=== PATIENT | male | born 1955 | race Caucasian/White ===

== ENCOUNTER 2023-10-14 23:30 | Observation (INO) | payer BC, SELFPAY ==
[2023-10-14] VITALS (9 sets, daily range): BP systolic 121–201; BP diastolic 75–110; BMI 33.7
[2023-10-14 18:32] LABS: % Basophils 0.2 % (0-2); % Eosinophils 0.8 % (0-6); % Immature Granulocytes 0.3 % (0-0.5); % Lymphocytes 22.3 % (20.5-51.1); % Monocytes 9.1 % (1.7-9.3); % Neutrophils 67.3 % (42.2-75.2); Absolute Eosinophils 0.1 10^3/uL (0-0.7); Absolute Lymphocytes 2.4 10^3/uL (1.2-3.4); Absolute Neutrophils 7.2 10^3/uL (1.4-6.5); Hematocrit 41.5 % (39.0-52.0); Hemoglobin 14.8 g/dL (13.0-18.0); Mean Corp Hgb Conc. 35.7 g/dL (33.0-37.0); Mean Corpuscular Hgb 30.6 pg (27.0-31.0); Mean Corpuscular Volume 85.9 fL (80.0-94.0); Mean Platelet Volume 9.1 fL (7.4-10.4); Nucleated Red Blood Cells % 0 % (-); Platelet Count 357 10^3/uL (130-400); Red Blood Cell Count 4.83 10^6/uL (4.70-6.10); Red Cell Dist. Width 12.7 % (11.5-14.5); White Blood Cell Count 10.7 10^3/uL (4.8-10.8)
[2023-10-14 18:48] LABS: ALT (SGPT) 31 U/L (0-50); AST (SGOT) 33 U/L (17-59); Albumin 4.9 g/dl (3.5-5.0); Alkaline Phosphatase 65 U/L (38-126); Blood Urea Nitrogen 19 mg/dl (9-20); Calcium 9.7 mg/dl (8.4-10.2); Carbon Dioxide 22 mmol/L (22-30); Chloride 102 mmol/L (98-107); Estimated Creatinine Clearance 91 ml/min; Glucose 107 mg/dl (70-99); Potassium 4.2 mmol/L (3.5-5.1); Sodium 137 mmol/L (135-145); Total Bilirubin 0.5 mg/dl (0.2-1.3); eGFR > 60.00
[2023-10-14] MEDS: ASPIRIN 325 MG PO (23:06)
[2023-10-14] MEDS: PLAVIX 75 MG PO (23:06)
--- NOTE | 2023-10-14 23:32 | HPS.HSE ---
Family Physician
-
Family Physician: * NONE
Chief Complaint
-
facial droop, slurred speech, difficuly swallowing
History of Present Illness
68-year-old male with past medical history of gout, hypertension, presenting with right facial droop, drooling, slight slurring of words, and swallowing difficulty over the past 5 days. He is also noticed a dull discomfort over the right presybeterian.
He also complains of worsening blurry vision particularly in his left eye. Both of his eyelids are also more droopy over this time period. He has chronic numbness and tingling of the third fourth and fifth fingers of his left hand but this has
been present for several years. He denies any focal weakness. He has been off balance somewhat over the past week.
He has a history of high blood pressure however when his primary care physician retired he no longer obtain refills of the medication.
He is a former smoker. He smokes cigars occasionally. He denies alcohol use. He denies any other drugs.
His mother had Rodríguez's palsy.
Medical History
Past Medical History
Past Medical History: Reports Other (gout, hypertension)
Past Surgical History: Reports None
Social History
Tobacco: Former Smoker
Alcohol: None
Drug: None
Family History
Family History: Not pertinent
Allergies / Home Medications
Allergies reflects when Allergies were last updated in [facility].
Home Medications with original date entered in [facility]
Allergy/Medication List:
Allergies
Allergy/AdvReac Type Severity Reaction Status Date / Time
No Known Allergies Allergy Unverified 04/30/21 11:34
Home Medications
No Meds [No Current Medications] 10/14/23
Review of Systems
-
History Source: Patient
A 12 point ROS was completed and negative except as noted: Yes
Constitutional: Reports No Symptoms
EENT: Reports No Symptoms
Respiratory: Reports No Symptoms
Cardiac: Reports No Symptoms
Abdomen/GI: Reports No Symptoms
: Reports No Symptoms
Musculoskeletal: Reports No Symptoms
Skin: Reports No Symptoms
Neurological: Reports No Symptoms
Endocrine: Reports No Symptoms
Hematologic/Lymphatic: Reports No Symptoms
Psych: Reports No Symptoms
Physical Exam
Vital Signs
Vital Signs
Temp Pulse Resp BP Pulse Ox
99.4 F 69 18 151/92 98
10/14/23 18:04 10/14/23 23:10 10/14/23 18:04 10/14/23 23:10 10/14/23 23:10
Physical Exam
General: Well Developed, Well Nourished and No Apparent Distress
HEENT: NormoCephalic, Moist mucous membranes and Atraumatic
Respiratory: Clear
Cardiac: S1/S2 and Regular Rhythm; No Murmur or Rub
GI: Soft, Non Tender, Non Distended and Normal Bowel Sounds; No Organomegaly
Rectal: Deferred by Provider
Musculoskeletal: No Clubbing, No Cyanosis and No Edema
Skin: No Rash
Neuro: Nonfocal/grossly intact, Slurred Speech and Facial Droop
Laboratory Results
-
10/14/23 18:23
10/14/23 18:23
Laboratory Results
Total Bilirubin 0.5 mg/dl (0.2-1.3) 10/14/23 18:23
AST 33 U/L (17-59) 10/14/23 18:23
ALT 31 U/L (0-50) 10/14/23 18:23
Alkaline Phosphatase 65 U/L (38-126) 10/14/23 18:23
Data Reviewed
-
Lab Data: Labs Reviewed by me
Old Records: Reviewed
Impression/Plan
-
IMPRESSION:
PLAN:
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
-On the whole history is suggestive of subacute CVA except for bilateral ptosis
-Aspirin and Plavix given
-CT head shows no acute abnormality
-Check MRI brain
-Check A1c and lipid panel
-Check speech and swallow evaluation
-Neurology consulted
Essential hypertension
-No longer on treatment
Gout
Full code
DVT prophylaxis�SCDs
Regular diet
[2023-10-15] VITALS (9 sets, daily range): BP systolic 149–186; BP diastolic 79–92; BMI 33.1
--- NOTE | 2023-10-15 01:10 | PTCARENOTE ---
Pt arrived from ED via stretcher and ambulated to bed. Pt is AAOx3, VSS, and w/o complaints of pain. NIH-1 slight R sided facial droop. Pt is resting comfortably w/ call peterson within reach.
--- NOTE | 2023-10-15 01:10 | PTCARENOTE ---
Pt arrived from ED via stretcher and ambulated to bed. Pt is AAOx3, VSS, and w/o complaints of pain. NIH-2 R sided facial droop. Pt is resting comfortably w/ call peterson within reach.
--- NOTE | 2023-10-15 04:30 | ED.GENMED ---
History of Present Illness
General
Chief Complaint: Blood Pressure Problem
Source: patient and spouse
Exam Limitations: none
Time Seen by Provider: 10/14/23 19:04
Nursing documentation reviewed up to this point in time: agreed with
History of Present Illness
History of Present Illness:
68-year-old male with a past medical history of hypertension presents to the emergency room for evaluation of facial drooping, slurred speech, swallowing issues. Patient reports that symptoms started Thursday and they have been constant and he feels
slightly worsening. He went to urgent care today and was sent to the emergency room for evaluation concern for possible stroke. Patient says that he noticed symptoms gradually on Thursday does not recall the exact time of onset. He says that he
mainly notices that food tends to trip from the side of his mouth on the right and that he has slurred speech 'like I Saleem Fudd.' He also describes dysphagia�difficulty initiating swallow. He has not noticed any acute change in his vision. He
says he has had some balance issues but that this is not necessarily an acute change�his seems to think that his balance has been worse over the past few days she says. Patient denies any focal weakness or numbness in his extremities. He
denies any headache. He denies any head trauma. He denies having had similar symptoms in the past. He does notably have hypertension and reports that he has not taken any medication for the past year�his prescribing physician retired and he has
not yet seen a primary.
Past History
Past History
ED Past Medical History: Other (Gout)
ED Past Surgical History: None
Social History
Tobacco: Former smoker
Alcohol: None
Personal:
Living: with family
Employment: Employed ([employer])
Review of Systems
Review of Systems
All Other Systems: ROS reviewed and negative except as documented in HPI and ROS
Constitutional: Denies fever or chills
EENT: Denies sore throat
Respiratory: Denies cough or trouble breathing
Cardiac: Denies chest pain or palpitations
ABD/GI: Denies abdominal pain, nausea or vomiting
: Denies flank pain
Musculoskeletal: Denies neck pain or back pain
Neurological: Reports other (Facial droop, slurred speech, balance issues); Denies headache, weakness or numbness
Phy Exam
Physical Exam
Physical Exam:
General: Awake, alert, oriented x3; no acute distress
Head: Normocephalic, atraumatic
Eyes: Conjunctiva normal, EOMI, pupils equal round reactive to light bilateral
Throat: Airway intact, handling secretions
Neck: Trachea midline, supple without meningismus
Lungs: Clear to auscultation bilaterally, no wheezing, rales, rhonchi
Heart: Regular rate and rhythm, no murmurs, gallops, or rubs
Abd: Soft, non distended, nontender
Neuro: Patient has right-sided facial droop that does not spare the forehead; cranial nerves otherwise intact; he has no limb ataxia; motor and sensory function is intact and symmetric proximally and distally in the upper and lower extremities; he
does have mild dysarthria but no aphasia
Skin: no rash
Extremities: No edema in extremities, warm and well-perfused
Scores
NIH Stroke Score
Level of Consciousness: 0 - Alert
LOC Questions: 0-Answers both correctly
LOC Commands: 0-Performs both correctly
Best Horizontal Gaze: 0-Normal
Visual Schaefer: 0=Normal, no visual loss
Facial Palsy: 2=Partial paralysis
Motor - Right Arm: 0=No drift 10 seconds
Motor - Left Arm: 0=No drift 10 seconds
Motor - Right Le-No drift 5 seconds
Motor - Left Le-No drift 5 seconds
Limb Ataxia: 0-Absent
Sensation: 0-Normal
Best Language: 0-No aphasia
Dysarthria: 1-Mild slurring
Extinction and Inattention: 0-No abnormality
Total Score:: 3
Thrombolytic Contraindication
Inclusion and Exclusion criteria reviewed: Yes
Reasons for NON-Tx with Thrombolytics ABSOLUTE Exclusions: Greater than 4.5 hrs from onset of sxs
Heart Failure Risk
Heart Failure Risk Score: Not Applicable
Heart Score for Chest Pain Patients
STEMI patient?: Not applicable
Withdrawal Assessment of Alcohol
Withdrawal Assessment Completed?: Not applicable
Course
Orders/Labs/Results
Orders:
Orders
10/14/23 18:23
CMP [Comprehensive Metabolic Panel] Urgent
Complete Blood Count/With Diff Urgent
10/14/23 18:29
Lyme PCR, DNA [S] Urgent
10/14/23 21:52
CT Head W/o Iv Contrast Urgent
Comment:
Reason For Exam: right facial droop, swallowing dysfunction
10/14/23 21:54
Add On- LAB Urgent
Tests Added?: lyme pcr
10/14/23 22:54
Aspirin 325 mg PO NOW STA
Clopidogrel Bisulfate [Plavix] 75 mg PO NOW STA
10/14/23 22:55
NEUROLOGY CONSULT Urgent
Consulting Provider: Aguilar Kahn
Was physician already notified: Yes
Abnormal Lab Results
10/14/23
18:23
Absolute Neuts (auto) 7.2 H 10^3/uL
(1.4-6.5)
Absolute Monos (auto) 1.0 H 10^3/uL
(0.1-0.6)
Glucose 107 H mg/dl
(70-99)
10/14/23 18:23
10/14/23 18:23
Vital Signs
Initial and Last Documented VS:
Initial Vital Signs
Temp Pulse Resp BP Pulse Ox
37.4 C 89 18 201/110 96
10/14/23 18:04 10/14/23 18:04 10/14/23 18:04 10/14/23 18:04 10/14/23 18:04
Last Documented Vital Signs
Temp Pulse Resp BP Pulse Ox
36.7 C 64 18 153/80 98
10/15/23 03:53 10/15/23 03:53 10/15/23 03:53 10/15/23 03:53 10/15/23 03:53
MDM/Problems Addressed
Differential Diagnosis Includes:
Rodríguez's palsy, stroke, mass, hemorrhage
MDM/Problems Addressed:
68-year-old male presents to the emergency room for evaluation of right facial droop, dysarthria and dysphagia. He says onset was Thursday--stroke is of course of concern but he is well outside window for TNK, no stroke alert called. He is
hypertensive but otherwise normal vitals. Physical exam is as above. Objectively his main neurologic finding is right facial droop that does not spare the forehead and although he does have some dysarthria I suspect is related to the facial droop.
Certainly Rodríguez's palsy strong consideration but with his report of dysphagia as well as the question of increased balance issues I do think stroke needs to be ruled out. Will check CT head. Will check basic labs and EKG. Reassess after the above.
Labs reviewed: CBC and CMP show no clinically significant abnormalities. CT head shows no acute pathology. Case discussed with neurology agreed that stroke should be ruled out; although CT head negative sensitivity even for subacute stroke is
inadequate especially with concern for possible brainstem involvement. Recommended dosing with aspirin and Plavix will admit for MRI and clinical monitoring. Case discussed with hospitalist.
Chronic conditions affecting care:
Hypertension�high risk for stroke
Acute Exacerbation and/or Progression of Chronic Illness:
Acutely hypertensive�improved but not normalized without intervention; permissive hypertension in the setting of suspected subacute stroke
Acute Exacerbation and/or Progression of Chronic Illness: HTN
*Radiology
Radiology exam reviewed: radiology read reviewed
*Pulse Oximetry
Patient hypoxic: no
*Critical Care Note
Total Time (30-74mins, 75-104mins- exclusive of procedures): Not Applicable
Data Reviewed
Source: patient and spouse
Patient Management
Discussion with other providers: Hospitalist (Discussed with hospitalist) and Editing [employer] (Discussed with neurologist)
Escalation/DeEscalation of care consider admission/obs:
Admission indicated
ED Attending Note
-
Portions of this chart may have been created with voice recognition software.� Occasional wrong word or��sound alike� substitutions may have occurred due to the inherent limitations of voice recognition software.
Discharge Plan
Departure
Patient Disposition: Admit
Date of Disposition: 10/14/23
Time of Disposition: 23:02
Admit to doctor: Sergei
Presentation/result/management discussed w/ accepting MD/DO: Hospitalist
Discharge Problem:
Facial droop, Hypertension
Interventions
Interventions:
*Risk Screen - Suicide Last Done: 10/15/23 01:22
*General Assessment Last Done: 10/14/23 18:09
*Neglect/Abuse Screening Last Done: 10/14/23 18:09
ED- Fall Risk Assessment Last Done: 10/14/23 18:09
*ED COVID-19 Vaccine History Last Done: 10/15/23 01:22
*Nursing Disposition Last Done: 10/15/23 00:54
ED- Cardiac Assessment Last Done: 10/14/23 18:09
ED- Neurological Assessment Last Done: 10/14/23 23:00
ED- Pulmonary Assessment Last Done: 10/14/23 18:09
Discharge Date and Time
Discharge Date/Time: 10/15/23 00:55
[2023-10-15 07:13] LABS: Hematocrit 42.6 % (39.0-52.0); Hemoglobin 14.2 g/dL (13.0-18.0); Mean Corp Hgb Conc. 33.3 g/dL (33.0-37.0); Mean Corpuscular Hgb 30.2 pg (27.0-31.0); Mean Corpuscular Volume 90.6 fL (80.0-94.0); Mean Platelet Volume 9.3 fL (7.4-10.4); Platelet Count 310 10^3/uL (130-400); Red Cell Dist. Width 12.6 % (11.5-14.5); White Blood Cell Count 10.1 10^3/uL (4.8-10.8)
[2023-10-15 07:37] LABS: Blood Urea Nitrogen 19 mg/dl (9-20); Calcium 9.4 mg/dl (8.4-10.2); Carbon Dioxide 27 mmol/L (22-30); Chloride 102 mmol/L (98-107); Estimated Creatinine Clearance 91 ml/min; Glucose 85 mg/dl (70-99); HDL Cholesterol 34 mg/dl; LDL Cholesterol, Calculated 90 mg/dl; Potassium 4.1 mmol/L (3.5-5.1); Sodium 139 mmol/L (135-145); Total Cholesterol 155 mg/dl (50-199); Triglyceride 159 mg/dl (10-149); Very Low Density Lipoprotein 31 mg/dl (0-30); eGFR > 60.00
--- NOTE | 2023-10-15 07:42 | CON.NEURO ---
Neuro Assessment/Plan
Assessment
IMPRESSIONS/RECOMMENDATIONS:
Abrupt change in speech and swallowing
with MRI of brain failing to demonstrate an acute or chronic issue
Plan
check blood work for potential causes including acetylcholine receptor antibodies
speech therapy evaluations
add pyridostigmine 30 mg 4x/day in case of diagnosis of myasthenia gravis
outpatient EMG testing for possible myasthenia gravis
Will continue to follow patient.
Consultation
Order
Date of Consultation: 10/15/23
Requesting Provider: Hospitalist
Reason for Consult: Right facial droop
Subjective/Objective
Subjective Data
Date of Service: October 15, 2023
Right-Handed
Patient presented to this hospital's emergency department with right-sided facial droop, slurred speech, and swallowing difficulty. Symptoms, by report, began on October 09, 2023. Patient experienced slurred speech and swallowing. Dysphagia improved
with liquids, present with each meal. Patient also had blurred vision which did not improve, although intermittent for the past year.
Intermittent speech problem with worsening with continued speech. Not changed by end of day. No difficulty with climbing stairs or brushing teeth. No known modifying factors.
Objective Data
Vital Signs
Temp Pulse Resp BP Pulse Ox
36.7 C 64 18 153/80 98
10/15/23 03:53 10/15/23 03:53 10/15/23 03:53 10/15/23 03:53 10/15/23 03:53
Lab Results
10/15/23 06:47
10/15/23 06:47
Sodium 139 mmol/L (135-145) 10/15/23 06:47
Potassium 4.1 mmol/L (3.5-5.1) 10/15/23 06:47
BUN 19 mg/dl (9-20) 10/15/23 06:47
Glucose 85 mg/dl (70-99) 10/15/23 06:47
Calcium 9.4 mg/dl (8.4-10.2) 10/15/23 06:47
LDL Cholesterol, Calc 90 mg/dl 10/15/23 06:47
Patient Allergies
No Known Allergies Allergy (Unverified 04/30/21 11:34)
Review of Systems
-
History Source: Patient
All other systems: Reviewed and negative
EENT: Swallowing Difficulty; Negative Blurry Vision or Decreased Vision
Respiratory: Trouble Breathing (with reclining)
Cardiac: Negative Chest Pain
Abdomen/GI: Negative Incontinence of Stool
Genitourinary: Negative Incontinence
Musculoskeletal: Negative Back Pain or Neck Pain
Neuro: Headache (occasional); Negative Dizzy
Physical Exam
-
General: No Apparent Distress and Appears Stated Age
Eyes: OU Absent Papilledema, Round OU, [place] Conjunctivae and No Ptosis
HEENT: Anicteric and Moist Mucous Membranes
Neck: Full Range of Motion
Respiratory: No Dyspnea
Cardiac: No Murmur and No JVD
GI: Non-distended
Skin: Unremarkable
Extremities: No Clubbing, No Cyanosis and No Edema
Psych: Intact Judgement/Insight
Extended Neurological Exam
Mood & Affect: Mood Unremarkable and Affect Unremarkable
Attention Span & Concentration: Awake, Alert, Interactive and No Difficulty with 2 Step Request
Memory: Unremarkable
Tremor: Hand Tremor Absent and Head Tremor Absent
Involuntary Movement: None
Speech: Quality Unremarkable and Quantity Unremarkable
Cranial Nerve II: Left Eye: Pupillary Reactivity Unremarkable, Pupillary Size Unremarkable and Visual Schaefer Intact
Cranial Nerve II: Right Eye: Pupillary Reactivity Unremarkable, Pupillary Size Unremarkable and Visual Schaefer Intact
Cranial Nerves III, IV, : Extraocular Movement: Extraocular Movement Full in all Directions
Cranial Nerve V: Facial Sensation: Facial Sensation Unremarkable to Cold
Cranial Nerve VII: Facial Symmetry: Normal Facial Symmetry
Cranial Nerve VIII: Hearing: Unremarkable Hearing to Normal Conversational Volume
Cranial Nerves IX, X: Palate Movement: Palate Elevation Symmetric
Cranial Nerve XI: Shoulder Shrug: Unremarkable
Cranial Nerve XII: Tongue Protusion: Midline
Muscle Strength, Overall: Full Throughout and Other (Intact neck flexion)
Muscle Bulk & Tone: Bulk Unremarkable and Tone Unremarkable
Pronator Drift: No Drift in Upper Extremities
Deep Tendon Reflexes: Unremarkable Throughout
Cold Sensation: Reduced Mildly Distally
Touch Sensation: Unremarkable
Coordination: [id number] Testing Unremarkable
Babinski Sign: Absent Bilaterally
Gait & Station: Romberg Test Negative
Data Reviewed
-
CT Head: Report Reviewed
MRI Head: Report Reviewed
Labs: Report Reviewed
Reviewed with: Physician, Nurse and Patient
Old Records: Summarized
Medications
-
Active Medications
Generic Name Dose Route Start Last Admin
Trade Name Freq PRN Reason Stop Dose Admin
Sodium Chloride 0 flush 10/14/23 23:00
Sodium Chloride 0.9% (Flush) Syringe IV 11/11/23 22:59
PER PROTOCOL PATRICE
Home Medications
�Medication �Instructions �Recorded
No Meds [No Current Medications] 10/14/23
Past History
Past History
ED Past Medical History: HTN and Other (Gout, COVID-19 2021)
ED Past Surgical History: None
Social History
Tobacco: Former smoker
Alcohol: None
Personal:
Living: with family
Employment: Employed ([employer])
Family History
Family History: Other (Reviewed and noncontributory)
--- NOTE | 2023-10-15 08:40 | PTOTSP ---
Speech Language Pathology
Pt seen for speech/language evaluations. Mild dysarthria noted. Pt was 100% intelligible in both known and unknown contexts. Language evaluated via the Quick Aphasia Battery (QAB), form 1. Pt scored WNL on all subtests.
Pt also seen for clinical bedside swallow evaluation. Pt reported difficulty initiating secondary swallows. P.O. trials of puree, regular solids, and thin liquids provided. Adequate mastication, bolus formation, and A-P transit noted with no oral
residue. No overt signs of aspiration.
Recommend:
(1) Regular solids/thin liquids
(2) General aspiration precautions
(3) Meds as tolerated
(4) [employer] to continue to follow
[2023-10-15 09:26] LABS: Glycohemoglobin (HgbA1c) 5.5 % (4.0-5.6)
[2023-10-15 11:46] LABS: Erythrocyte Sed Rate 12 mm/hour (0-20)
[2023-10-15] MEDS: MESTINON 30 MG PO ×3 (12:25→22:01)
[2023-10-15 13:00] LABS: Ferritin 99.9 ng/ml (17.9-464.0)
[2023-10-15 13:23] LABS: Free T4 0.97 ng/dl (0.78-2.19)
[2023-10-15 13:39] LABS: Folate > 20.0 ng/ml (2.76-20); Vitamin B12 777 pg/ml (239-931)
--- NOTE | 2023-10-15 14:43 | W.PN.HOSP.TC ---
Today's Communication/Plan
-
start pyridostigamine
await speech eval
Assessment / Plan
Assessment / Plan
No acute distress comfortable
Scleral anicteric
Moist mucous membranes
CTA bilateral
Regular rate rhythm normal S1-S2
Soft nontender nondistended bowel sounds active
No pronator drift, normal motor strength in bilateral upper and lower extremity, alert and oriented x 3
Concern for CVA less likely Rodríguez's palsy, however, neuro concern for MG as CVA testign was negative
MRI brain without acute findings
CT brain without acute findings
Neurology following recommending MG workup started on paroxetine
Will likely require outpatient EMG
As pyridostigmine started today we will monitor to see how he does
Will have speech eval along with pt/ot
Anticipated Discharge: 24 - 48 hours
Subjective/Interval History
-
Date of Service: October 15, 2023
Seen and examined. No new complaints. No acute overnight events
Objective Data
-
Labs:
Laboratory Results
10/15/23
06:47
WBC 10.1
Hgb 14.2
Hct 42.6
Plt Count 310
Sodium 139
Potassium 4.1
Chloride 102
Carbon Dioxide 27
BUN 19
Creatinine 1.0
Glucose 85
Calcium 9.4
Vital Signs:
Vital Signs
Temp Pulse Resp BP Pulse Ox
98.2 F 66 18 159/79 96
10/15/23 11:36 10/15/23 11:36 10/15/23 11:36 10/15/23 11:36 10/15/23 11:36
I&O
10/14/23 10/15/23 10/16/23
06:59 06:59 06:59
Intake Total 480 / 480
Balance 480 / 480
MRI
Brain MRI
IMPRESSION:
No acute intracranial abnormality noted. Specifically, no acute infarct.
CT
Brain CT
IMPRESSION:
1. No CT evidence for acute intracranial hemorrhage or transcortical infarct.
2. Mild diffuse cerebral and cerebellar volume loss.
[2023-10-16 03:35] VITALS: BP 163/81
[2023-10-16 07:45] VITALS: BP 162/75
[2023-10-16] MEDS: MESTINON 30 MG PO (07:58)
[2023-10-16] MEDS: ZESTRIL 2.5 MG PO (07:59)
[2023-10-16] MEDS: FLUSH (NSS) 1 FLUSH IV (08:01)
--- NOTE | 2023-10-16 09:31 | W.PN.NEURO.1 ---
Today's Communication / Plan
-
check blood work for potential causes including acetylcholine receptor antibodies
Check CT of chest for possible thymoma, unlikely
Increase newly initiated pyridostigmine 30 mg 4x/day to 60 mg 4 times a day
outpatient EMG testing for possible myasthenia gravis
Neuro Assessment/Plan
Assessment
IMPRESSIONS/RECOMMENDATIONS:
Abrupt change in speech and swallowing
with MRI of brain failing to demonstrate an acute or chronic issue
Differential exists includes myasthenia gravis
Plan
check blood work for potential causes including acetylcholine receptor antibodies
Check CT of chest for possible thymoma, unlikely
speech therapy evaluations
Increase newly initiated pyridostigmine 30 mg 4x/day to 60 mg 4 times a day
outpatient EMG testing for possible myasthenia gravis
Will continue to follow patient.
Subjective/Objective
Subjective Data
Date of Service: October 16, 2023
Improved function.
Objective Data
Vital Signs
Temp Pulse Resp BP Pulse Ox
36.4 C 62 18 162/75 95
10/16/23 07:45 10/16/23 07:45 10/16/23 07:45 10/16/23 07:45 10/16/23 07:45
Lab Results
10/15/23 06:47
10/15/23 06:47
Sodium 139 mmol/L (135-145) 10/15/23 06:47
Potassium 4.1 mmol/L (3.5-5.1) 10/15/23 06:47
BUN 19 mg/dl (9-20) 10/15/23 06:47
Glucose 85 mg/dl (70-99) 10/15/23 06:47
Calcium 9.4 mg/dl (8.4-10.2) 10/15/23 06:47
LDL Cholesterol, Calc 90 mg/dl 10/15/23 06:47
Vitamin B12 777 pg/ml (801-931) 10/15/23 06:47
Patient Allergies
No Known Allergies Allergy (Unverified 04/30/21 11:34)
Review of Systems
-
History Source: Patient
All other systems: Reviewed and negative
EENT: Swallowing Difficulty
Physical Exam
-
General: No Apparent Distress and Appears Stated Age
Eyes: Round OU, [place] Conjunctivae and No Ptosis
HEENT: Anicteric and Moist Mucous Membranes
Neck: Full Range of Motion
Respiratory: No Dyspnea
Cardiac: No JVD
GI: Non-distended
Skin: Unremarkable
Extremities: No Clubbing, No Cyanosis and No Edema
Psych: Intact Judgement/Insight
Extended Neurological Exam
Mood & Affect: Mood Unremarkable and Affect Unremarkable
Attention Span & Concentration: Awake, Alert, Interactive and No Difficulty with 2 Step Request
Memory: Unremarkable
Tremor: Hand Tremor Absent and Head Tremor Absent
Involuntary Movement: None
Speech: Quality Unremarkable and Quantity Unremarkable
Cranial Nerve II: Left Eye: Pupillary Size Unremarkable and Visual Schaefer Grossly Intact
Cranial Nerve II: Right Eye: Pupillary Size Unremarkable and Visual Schaefer Grossly Intact
Cranial Nerves III, IV, : Extraocular Movement: Grossly Intact
Cranial Nerve VII: Facial Symmetry: Normal Facial Symmetry
Cranial Nerve VIII: Hearing: Unremarkable Hearing to Normal Conversational Volume
Muscle Strength, Overall: Full Throughout and Other (Intact neck flexion)
Muscle Bulk & Tone: Bulk Unremarkable and Tone Unremarkable
Pronator Drift: No Drift in Upper Extremities
Touch Sensation: Unremarkable
Coordination: [id number] Testing Unremarkable
Gait & Station: Romberg Test Positive (Minimally)
Data Reviewed
-
Labs: Report Reviewed
Reviewed with: Physician and Patient
Old Records: Summarized
[2023-10-16 11:15] VITALS: BP 145/80
[2023-10-16] MEDS: MESTINON 60 MG PO (13:06)
--- NOTE | 2023-10-16 15:14 | W.PN.HOSP.TC ---
Today's Communication/Plan
-
per neurology, ocnitnue pyridostigamine, dose to be increased
check ct chest
outpatient emg
speech therapy eval follow up
Assessment / Plan
Assessment / Plan
No acute distress comfortable
Scleral anicteric
Moist mucous membranes
CTA bilateral
Regular rate rhythm normal S1-S2
Soft nontender nondistended bowel sounds active
No pronator drift, normal motor strength in bilateral upper and lower extremity, alert and oriented x 3
Concern for CVA less likely Rodríguez's palsy, however, neuro concern for MG as CVA testign was negative
MRI brain without acute findings
CT brain without acute findings
Neurology following recommending MG workup started on paroxetine
Will likely require outpatient EMG
As pyridostigmine started today we will monitor to see how he does
Will have speech eval along with pt/ot
Anticipated Discharge: Within 24 hours
Subjective/Interval History
-
Date of Service: October 16, 2023
seen and examined
no ewn complaints
no acute overnight events
was able to toelrate a diet. ate chicken parm with brown rice, no butter/gravey used.
-meal was dry and did not feel like he had issues with swallowing
Objective Data
-
Vital Signs:
Vital Signs
Temp Pulse Resp BP Pulse Ox
98.4 F 72 18 145/80 96
10/16/23 11:15 10/16/23 11:15 10/16/23 11:15 10/16/23 11:15 10/16/23 11:15
I&O
10/15/23 10/16/23 10/17/23
06:59 06:59 06:59
Intake Total 480 / 480 1030 / 1030
Balance 480 / 480 1030 / 1030
[2023-10-16 15:30] VITALS: BP 144/82
--- NOTE | 2023-10-16 15:38 | W.PN.HOSP.TC ---
Today's Communication/Plan
-
Check CT chest increase pyridostigmine per neurology recommendations
Start lisinopril 2.5 mg daily
Outpatient EMG
Likely able to discharge later today
Assessment / Plan
Assessment / Plan
No acute distress comfortable
Scleral anicteric
Moist mucous membranes
CTA bilateral
Regular rate rhythm normal S1-S2
Soft nontender nondistended bowel sounds active
No pronator drift, normal motor strength in bilateral upper and lower extremity, alert and oriented x 3
Concern for CVA less likely Rodríguez's palsy, however, neuro concern for MG as CVA testign was negative
MRI brain without acute findings
CT brain without acute findings
Neurology following recommending MG workup started on paroxetine
Will likely require outpatient EMG
As pyridostigmine started today we will monitor to see how he does
Will have speech eval along with pt/ot
Anticipated Discharge: Today
Subjective/Interval History
-
Date of Service: October 16, 2023
Seen and examined. No new complaints. No acute overnight events.
States that he is feeling better ate a dry chicken farm and brown rice dinner last night without gravy or butter tolerated well.
Swallowing well. No drooling. Protecting his airway fine.
Objective Data
-
Vital Signs:
Vital Signs
Temp Pulse Resp BP Pulse Ox
98.4 F 72 18 145/80 96
10/16/23 11:15 10/16/23 11:15 10/16/23 11:15 10/16/23 11:15 10/16/23 11:15
I&O
10/15/23 10/16/23 10/17/23
06:59 06:59 06:59
Intake Total 480 / 480 1030 / 1030
Balance 480 / 480 1030 / 1030
--- NOTE | 2023-10-16 15:39 | W.DCSUMMARY ---
Discharge Summary
Discharge Data
Date of Admission: 10/14/23
Date of Discharge: 10/16/23
-
Pending Results: Yes
Additional Pending Results:
Acetylcholine antibody testing. Neurology states that they will follow-up with this
Hospital Course
68-year-old male with a past medical history of gout and hypertension presented with right facial droop, drooling, slight slurring of words, swallowing defect over the past 5 days. Dull discomfort over the right sikhism. Associated worsening blurry
vision particularly in his left eye. At the time of discharge all of this has resolved. He was started on pyridostigmine by neurology as there is concern for myasthenia gravis. My assessment is Gravis antibodies have been ordered and sent will
take time to return. Will need outpatient neurology follow-up. MRI as below. CT chest as below. Due to CT chest findings the 4 mm calcified granuloma will need outpatient pulmonary and PCP follow-up referrals have been provided
Was seen by speech therapy and noted proved manage speech no further concerns for speech production and no more 'isabelle fud'. Recommended to continue regular texture diet and thin liquids. Medications whole with liquid 1 at a time.
Noted to have uncontrolled high blood pressure while in the hospital. He was started on low-dose lisinopril. You will need to keep a blood pressure log for at least 2 weeks or until you see your family doctor/PCP. Take your blood pressure twice a
day. Your PCP can review your log and adjust your blood pressure medication accordingly.
Discharge Plan
-
Patient Disposition: Home (Routine Discharge)
Discharge Diagnosis/Procedures: Gout hypertension
Concern for myasthenia gravis
Diet: As tolerated and Regular
Activity: No restrictions
Driving Restrictions: As prior to admission
Bathing Restrictions: None
Activity Restrictions/Additional Instructions:
Presented with right facial droop, drooling, slight slurring of words, swallowing defect over the past 5 days. Dull discomfort over the right sikhism. Associated worsening blurry vision particularly in his left eye. At the time of discharge all of
this has resolved. He was started on pyridostigmine by neurology as there is concern for myasthenia gravis. My assessment is Gravis antibodies have been ordered and sent will take time to return. Will need outpatient neurology follow-up. MRI as
below. CT chest as below. Due to CT chest findings the 4 mm calcified granuloma will need outpatient pulmonary and PCP follow-up referrals have been provided
Was seen by speech therapy and noted proved manage speech no further concerns for speech production and no more 'isabelle fud'. Recommended to continue regular texture diet and thin liquids. Medications whole with liquid 1 at a time.
Noted to have uncontrolled high blood pressure while in the hospital. He was started on low-dose lisinopril. You will need to keep a blood pressure log for at least 2 weeks or until you see your family doctor/PCP. Take your blood pressure twice a
day. Your PCP can review your log and adjust your blood pressure medication accordingly.
CT Brain
IMPRESSION:
1. No CT evidence for acute intracranial hemorrhage or transcortical infarct.
2. Mild diffuse cerebral and cerebellar volume loss.
Brain MRI
IMPRESSION:
No acute intracranial abnormality noted. Specifically, no acute infarct.
CT CHest
IMPRESSION:
1. No acute findings within the chest. No anterior mediastinal masses or evidence for thymoma.
2. 4 mm calcified granuloma within the right lower lobe as well as small calcified right hilar lymph nodes compatible with prior granulomatous disease.
3. Mild to moderate coronary artery opacification.
4. Additional findings above.
Referrals:
Westley Cox MD [Active] - in two to three weeks
Aguilar Kahn MD [Active] - in two to three weeks
NONE,* [Family Provider] -
Prescriptions:
New
pyridostigmine bromide 60 mg Tablet
60 mg PO QID 30 Days Qty: 120 0RF
lisinopril 2.5 mg Tablet
2.5 mg PO DAILY Qty: 30 0RF
Discharge Orders:
Discharge Patient (As Directed); Ordered 10/16/23
Ordered By: Rancho Medrano
Discharge Date and Time
Print Language: [id number]
--- NOTE | 2023-10-16 16:21 | CM ---
JOSE met with Drake to complete IA. He lives with his in a 2 story home with no entry steps.
Drake came in with speech problems which have mostly resolved. He is being discharged today with plan for outpatient follow up.
Drake's PCP retired in July and he has not been able to get his regular medications. I provided him with a list of PCPs so he can have a physician for general medical needs in the community.
Plan: Discharge to home with no needs.
[2023-10-17 22:12] LABS: Lyme Disease DNA by PCR Not Detected; Lyme Source Serum
[2023-10-18 17:57] LABS: Acetylcholine Receptor Bind Ab 32.9 nmol/L (0.0-0.4)
== END 2023-10-16 17:20 | disposition home or self-care (01) ==
LOC: 4 EAST ACU 23:30
PROVIDERS: Emergency Medicine; ADMITTING PHYSICIAN Hospitalist; ATTENDING PHYSICIAN Hospitalist; CONSULT PHYSICIAN Psychiatry & Neurology Neurology; EMERGENCY PHYSICIAN Emergency Medicine
DX: R29.810 Facial weakness (principal); I10 Essential (primary) hypertension; R47.81 Slurred speech; R13.10 Dysphagia, unspecified; M10.9 Gout, unspecified; H53.8 Other visual disturbances; R20.0 Anesthesia of skin; R20.2 Paresthesia of skin; J84.10 Pulmonary fibrosis, unspecified; Z87.891 Personal history of nicotine dependence; Z86.16 Personal history of COVID-19
CPT/HCPCS: 70450; 70551; 71250; 80048; 80053; 80061; 82607; 82728; 82746; 83036; 84439; 84443; 85025; 85027; 85652; 86041; 87476; 92507; 92523; 92526; 92610; 99285; G0378

== ENCOUNTER → 2025-02-15 13:42 | Outpatient (REF) | payer MEDICARE, SELFPAY | LOC: EMG 13:42 | PROVIDERS: ATTENDING PHYSICIAN Psychiatry & Neurology Neurology | DX: G70.00 Myasthenia gravis without (acute) exacerbation (principal); R20.0 Anesthesia of skin | CPT/HCPCS: 95886; 95908; 95937 ==